=== PATIENT | male | born 1960 | race Caucasian/White ===

== ENCOUNTER 2019-11-17 22:41 | Observation (INO) ==
[2019-11-17] MEDS ORDERED: 0.9 % Sodium Chloride 1,000 ML IVC ONE (22:46)
[2019-11-17] MEDS ORDERED: Isovue-370 500 ML BOTTLE IVP ONE ×2 (23:00→23:07)
[2019-11-17 23:48] LABS: Basophils # 0.1 K/mcL (0.0-0.2); Basophils % 0.4 %; Eosinophils # 0.1 K/mcL (0.0-0.6); Eosinophils % 0.7 %; Hematocrit 44.9 % (37.5-50.1); Hemoglobin 15.3 g/dL (12.9-16.9); INR 2.7; Immature Granulocytes % 0.6 % (0-4); Lymphocytes # 0.5 K/mcL (0.6-4.6); Lymphocytes % 3.4 %; Mean Corpuscular HGB Conc 34.1 g/dL (31.6-35.5); Mean Corpuscular Volume 90.9 fL (83.0-100.0); Mean Platelet Volume 12.6 fL (9.4-12.4); Monocytes # 0.3 K/mcL (0.0-1.3); Monocytes % 1.8 %; Neutrophils # 13.3 K/mcL (1.6-8.9); Platelet Count 160 K/mcL (140-400); Prothrombin Time 30.5 Seconds (9.4-12.1); Red Blood Count 4.94 M/mcL (4.19-5.50); Red Cell Distribution Width 12.8 % (11.5-14.5); Segmented Neutrophils % 93.1 %; White Blood Count 14.3 K/mcL (4.3-11.1)
[2019-11-17 23:58] LABS: Alanine Aminotransferase 14 Units/L (7-52); Albumin/Globulin Ratio 1.4 (1.1-2.2); Alkaline Phosphatase 101 Units/L (34-104); Aspartate Amino Transferase 16 Units/L (13-39); BUN/Creatinine Ratio 24 (6-26); Bilirubin,Direct 0.2 mg/dL (0.0-0.2); Bilirubin,Indirect 0.7 mg/dL (0.0-1.0); Bilirubin,Total 0.9 mg/dL (0.3-1.0); Blood Urea Nitrogen 23 mg/dL (8-23); Calcium 9.1 mg/dL (8.6-10.3); Carbon Dioxide 24 mEq/L (23-29); Chloride 104 mEq/L (98-107); Globulin 2.8 g/dL (2.4-3.5); Glucose 128 mg/dL (70-105); Lipase 20 Units/L (11-82); Osmolality,Calculated 291 (280-300); Sodium 138 mEq/L (136-145); Total Protein 6.8 g/dL (6.4-8.9); eGFR For African Americans > 60 (> 60); eGFR For Non-African Americans > 60 (> 60)
[2019-11-18 00:13] LABS: Troponin I < 0.03 ng/mL (< 0.04)
[2019-11-18] MEDS ORDERED: *HR* FentaNYL (PF) 100 MCG/2 ML VIAL IVP ONE (01:37)
[2019-11-18] MEDS ORDERED: 0.9 % Sodium Chloride 1,000 ML IVC ONE (02:10)
[2019-11-18 02:54] LABS: Bilirubin,Urine Negative (Negative); Blood,Urine Trace (Negative); Clarity,Urine Clear (Clear); Color,Urine Yellow (Yellow); Glucose,Urine (UA) Normal (Normal); Ketones,Urine Negative (Negative); Leukocyte Esterase,Urine Small (Negative); Nitrite,Urine Positive (Negative); Protein,Urine Trace mg/dL (Neg-Trace); Specific Gravity,Urine > 1.030 (1.010-1.025); Urobilinogen,Urine Normal (Normal)
[2019-11-18 02:55] LABS: Bacteria,Urine Many per hpf (None-Few); Hyaline Casts,Urine None Seen per lpf (None-Few); Squamous Epithelial Cell,Urine None Seen per lpf (None-Few); WBC,Urine 50-100 per hpf (0-3)
[2019-11-18] MEDS ORDERED: cefTRIAXone 1,000 MG in Water for inj. (sterile) 10 ML IVP ONE (03:47)
[2019-11-18] MEDS ORDERED: Naloxone 0.4 MG/ML INJ IVP PRN (04:32)
[2019-11-18 06:18] LABS: Hematocrit 40.8 % (37.5-50.1); Mean Corpuscular HGB Conc 32.6 g/dL (31.6-35.5); Mean Corpuscular Hemoglobin 30.6 pg (28.0-33.3); Mean Platelet Volume 12.6 fL (9.4-12.4); Platelet Count 143 K/mcL (140-400); Red Blood Count 4.34 M/mcL (4.19-5.50); White Blood Count 15.5 K/mcL (4.3-11.1)
[2019-11-18 06:24] LABS: Hemoglobin 13.3 g/dL (12.9-16.9)
[2019-11-18 06:42] LABS: BUN/Creatinine Ratio 23 (6-26); Blood Urea Nitrogen 21 mg/dL (8-23); Calcium 8.1 mg/dL (8.6-10.3); Carbon Dioxide 27 mEq/L (23-29); Chloride 106 mEq/L (98-107); Glucose 156 mg/dL (70-105); Osmolality,Calculated 294 (280-300); Potassium 3.9 mEq/L (3.5-5.1); Sodium 139 mEq/L (136-145); eGFR For African Americans > 60 (> 60); eGFR For Non-African Americans > 60 (> 60)
[2019-11-18] MEDS: Loratadine 10 MG TABLET PO SCH (09:55)
[2019-11-18] MEDS ORDERED: Ketorolac 15 MG/ML VIAL IVP PRN (10:00)
[2019-11-18] MEDS: polyethylene glycoL 3350 17 GM POWD.PACK PO SCH (12:38)
[2019-11-18] MEDS: Sennosides/Docusate Sodium TABLET PO SCH ×2 (12:38→20:19)
[2019-11-18] MEDS ORDERED: Acetaminophen 325 MG TABLET PO ONE (16:20)
[2019-11-18] MEDS: Piperacillin/Tazobactam 3.375 GM in 0.9 % Sodium Chloride Mini Bag 100 ML IVPB SCH (17:55)
[2019-11-18] MEDS ORDERED: *HR* Warfarin 2 MG TABLET PO ONE (18:00)
[2019-11-18] MEDS ORDERED: *HR* Warfarin 5 MG TABLET PO ONE (18:00)
[2019-11-18] MEDS ORDERED: Warfarin perPT PO PRN (18:00)
[2019-11-19] MEDS: Piperacillin/Tazobactam 3.375 GM in 0.9 % Sodium Chloride Mini Bag 100 ML IVPB SCH ×2 (01:52→10:06)
[2019-11-19 06:24] LABS: INR 2.5; Prothrombin Time 28.1 Seconds (9.4-12.1)
[2019-11-19 06:26] LABS: Basophils % 0.3 %; Eosinophils # 0.1 K/mcL (0.0-0.6); Eosinophils % 1.1 %; Hematocrit 40.3 % (37.5-50.1); Hemoglobin 13.1 g/dL (12.9-16.9); Immature Granulocytes % 0.3 % (0-4); Lymphocytes # 0.4 K/mcL (0.6-4.6); Lymphocytes % 3.7 %; Mean Corpuscular HGB Conc 32.5 g/dL (31.6-35.5); Mean Corpuscular Hemoglobin 30.1 pg (28.0-33.3); Mean Corpuscular Volume 92.6 fL (83.0-100.0); Mean Platelet Volume 12.7 fL (9.4-12.4); Monocytes # 0.5 K/mcL (0.0-1.3); Platelet Count 122 K/mcL (140-400); Red Blood Count 4.35 M/mcL (4.19-5.50); Red Cell Distribution Width 13.3 % (11.5-14.5); Segmented Neutrophils % 89.6 %
[2019-11-19] MEDS ORDERED: cefTRIAXone 1,000 MG in Water for inj. (sterile) 10 ML IVP SCH (09:00)
[2019-11-19] MEDS: Loratadine 10 MG TABLET PO SCH (09:35)
[2019-11-19] MEDS: Sennosides/Docusate Sodium TABLET PO SCH (10:07)
[2019-11-19] MEDS: polyethylene glycoL 3350 17 GM POWD.PACK PO SCH (10:07)
[2019-11-19 10:58] VITALS: BP 113/62
[2019-11-19] MEDS ORDERED: *HR* Warfarin 5 MG TABLET PO ONE (18:00)
== END 2019-11-19 15:31 | disposition home or self-care (01) ==
LOC: 3BNU 22:41 → EMEROOARM 22:41 → SUATTDRO 11-18 02:22 → 3BNU 11-18 02:52
PROVIDERS: ADMIT Internal Medicine; ATTEND Internal Medicine